=== PATIENT | male | born 1960 | race Caucasian/White ===

== ENCOUNTER → 2016-09-27 | Day surgery (SDC) | payer OTHER ==
[~2016-09-27] VITALS: Ht 170.2 cm; Wt 95.3 kg
[~2016-09-27] MED LIST: ALPRAZOLAM1 MG; CLEOCIN HCL300 M1 PO; KEFLEX250 M1 PO; LEVOTHYROXINE0.05 M1 PO; METHADONE PO
--- NOTE | 2016-09-27 12:03 | Operative Report ---
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 Sedation was obtained and his anus was prepped and draped. A perianal nerve block was created with a cocktail local anesthesia. Digital rectal examination was unrevealing. There were 2 large external skin tags. There appeared to be a fistulous communication between them. They were oriented in the posterior midline one on each side. The fistula was center in the middle. We began by incising the tissue overlying the fistula after a probe was placed through the tract. This was accomplished with cautery. Rigid proctoscopy showed internal components to the external hemorrhoids. There is one on each side of the posterior midline. center in the posterior midline was a inflammatory polyp. It was cauterized and resected. We next turned attention to the hemorrhoids. The external portion was incised on the skin and cautery used to dissected the external component off of the perianal tissues and down to the internal sphincter. We proceeded proximally starting on the left side first. The proximal stent of the hemorrhoidal tissue was delineated and suture ligated with 3-0 Vicryl suture. The mucosa was then closed over the transection site with 3-0 chromic gut. In a sore fashion the right posterior area was excised. Hemostasis was adequate. Sterile dressings were applied. Sponge and needle counts are correct CC: JUANA JAMISON-TROY,EUGENIA Rahman
== END ==
LOC: STS 02:08
DX: K64.8 Other hemorrhoids (principal); D12.8 Benign neoplasm of rectum; K60.3 Anal fistula; I10 Essential (primary) hypertension; K73.9 Chronic hepatitis, unspecified; F17.200 Nicotine dependence, unspecified, uncomplicated
CPT/HCPCS: 88304; 88305; J1580; J2250